=== PATIENT | female | born 1945 | race Caucasian/White ===

== ENCOUNTER → 2016-06-09 | Outpatient (CLI) | payer MEDICARE, BC | LOC: MAMO 11:11 | DX: Z12.31 Encounter for screening mammogram for malignant neoplasm of breast (principal); N64.4 Mastodynia | CPT/HCPCS: G0202 ==

== ENCOUNTER → 2016-06-17 | Outpatient (CLI) | payer MEDICARE, BC | LOC: MAMO 09:09 | DX: R92.8 Other abnormal and inconclusive findings on diagnostic imaging of breast (principal); Z90.710 Acquired absence of both cervix and uterus | CPT/HCPCS: 76641-LT; 76641-RT; G0204 ==